=== PATIENT | female | born 1980 | race Caucasian/White ===

== ENCOUNTER 2017-01-18 06:39 | Inpatient (IN) ==
--- NOTE | 2017-01-18 06:57 | History and Physical Update ---
History and Physical Update - History and Physical H&P was reviewed, the patient examined and there: are no changes in the patients condition since last H&P was completed. - Dictation Physical: refer to scanned H&P - Physical Exam Mental Status: alert and oriented Heart: regular rate and rhythm Lung: clear to auscultation Abdomen: within normal limits Vitals: within normal limits History and Physical Changes: 36yo at 39 wks for induction. No complications.
[2017-01-18] MEDS ORDERED: BUTORPHANOL 2 MG/ML VIAL IV PRN (07:34)
[2017-01-18] MEDS ORDERED: ONDANSETRON 4 MG/2 ML VIAL IV PRN (07:34)
[2017-01-18] MEDS ORDERED: MEPERIDINE 50 MG/1 ML VIAL IM PRN (07:34)
[2017-01-18 08:00] LABS: Basophils % 0.3 % (0.0-0.8); Eosinophils % 0.6 % (0.00-10.9); Hematocrit 32.7 VOL% (35.7-47.0); Hemoglobin 11.3 GM/DL (12.0-16.0); Immature Granulocytes % 0.8 %; Immature Granulocytes Absolute 0.05 #; Lymphocytes # 1.9 10*3/uL (1.4-4.0); Lymphocytes % 28.1 % (21.3-54.2); Mean Corpuscular HGB Conc 34.6 GM/DL (32-36); Mean Corpuscular Hemoglobin 29 PG (27-34); Mean Corpuscular Volume 84.5 FL (87-102); Mean Platelet Volume 11.7 FL (9.6-12.0); Monocytes # 0.5 10*3/uL (0.11-0.8); Neutrophils # 4.1 10*3/uL (1.4-7.4); Neutrophils % 62.2 % (38.7-73.9); Platelet Count 219 T/CUMM (130-400); Red Blood Count 3.87 MC/CUMM (3.8-5.5); Red Cell Distribution Width 14.3 % (9.3-17.3); White Blood Count 6.7 T/CUMM (4-12)
[2017-01-18 08:21] LABS: Alanine Aminotransferase 10 U/L (13-56); Albumin 2.4 G/DL (3.4-5.0); Alkaline Phosphatase 103 U/L (45-117); Aspartate Amino Transferase 20 U/L (0-37); Bilirubin,Total < 0.39 MG/DL (0.2-1.0); Blood Urea Nitrogen 7 MG/DL (7-18); Calcium 8.6 MG/DL (8.5-10.1); Glucose 115 MG/DL (74-106); Osmolality,Calculated 273.7 MOS/KG (273-304); Potassium 3.8 MMOL/L (3.5-5.1); Sodium 138 MMOL/L (136-145); Total Protein 6.3 G/DL (6.4-8.3)
[2017-01-18] MEDS ORDERED: WITCH HAZEL PADS 100/JAR TOP PRN (12:30)
[2017-01-18] MEDS: LACTATED RINGERS 1,000 ML IV SCH ×2 (12:41→17:50)
[2017-01-18] MEDS ORDERED: FAMOTIDINE 20 MG/2 ML VIAL IV ONE (12:43)
[2017-01-18] MEDS ORDERED: ePHEDrine 50 MG/ML AMP IV PRN (12:43)
[2017-01-18] MEDS ORDERED: hydrOXYzine HCL 25 MG/1 ML VIAL IM PRN (12:43)
[2017-01-18] MEDS ORDERED: diphenhydrAMINE 50 MG/1 ML VIAL IV PRN ×2 (12:43)
[2017-01-18] MEDS ORDERED: PROMETHAZINE 25 MG/1 ML VIAL IM ONE (12:43)
[2017-01-18] MEDS ORDERED: LACTATED RINGERS 1,000 ML IV ONE (12:43)
[2017-01-18] MEDS ORDERED: CITRIC ACID/SODIUM CITRATE 30 ML UDCUP PO ONE (12:43)
[2017-01-18] MEDS ORDERED: ONDANSETRON 4 MG/2 ML VIAL IV ONE (12:43)
[2017-01-18] MEDS: fentaNYL 2 MCG/ROPIV 0.2% EPID 150 ML EPIDURAL SCH (14:09)
[2017-01-18] MEDS: OXYTOCIN/LR 20 UNIT/1,000 ML BAG IV SCH (14:32)
[2017-01-18 14:36] LABS: Apearance,Urine CLEAR (Clear); Bilirubin,Urine Negative (Negative); Blood, Urine Negative (Negative); Glucose,Urine (UA) Negative (Negative); Ketones,Urine Negative (Negative); Nitrite,Urine Negative (Negative); Protein,Urine Negative; RBC,Urine 1 /HPF (0-4); Urine Color Straw (Yellow); Urine Specific Gravity 1.003 (1.001-1.035); Urine Urobilinogen < 2.0 EU/DL (0.2-1.0); WBC,Urine 1 /HPF (0-6)
[2017-01-19] MEDS ORDERED: METHYLERGONOVINE 0.2 MG/1 ML AMP ONE (05:41)
[2017-01-19] MEDS ORDERED: miSOPROStol 200 MCG TABLET ONE (05:41)
[2017-01-19] MEDS ORDERED: LIDOCAINE 1% 50 ML VIAL ONE (05:41)
[2017-01-19] MEDS ORDERED: HYDROCORTISONE 2.5% RECTAL CREAM 30 GM TUBE TOP PRN (06:18)
[2017-01-19] MEDS ORDERED: LANOLIN 50% CREAM 0.3 OZ TUBE TOP PRN (06:18)
[2017-01-19] MEDS ORDERED: MEASLES/MUMPS/RUBELLA VACCINE 0.5 ML VIAL SUBCUT ONE (06:18)
[2017-01-19] MEDS ORDERED: ACETAMINOPHEN 325 MG TABLET PO PRN (06:18)
[2017-01-19] MEDS ORDERED: oxyCODONE/ACETAMINOPHEN 5-325 MG TABLET PO PRN (06:18)
[2017-01-19] MEDS ORDERED: DIPH/TET/ACEL PERT BOOSTER VACCINE 0.5 ML VIAL IM ONE (06:18)
[2017-01-19] MEDS ORDERED: BENZOCAINE 20%/MENTHOL 0.5% SPRAY 56 GM CAN TOP PRN (06:18)
[2017-01-19] MEDS ORDERED: RHO(D) IMMUNE GLOBULIN 300 MCG SYRINGE IM ONE (06:18)
[2017-01-19] MEDS ORDERED: WITCH HAZEL PADS 100/JAR TOP PRN (06:18)
[2017-01-19] MEDS ORDERED: BISACODYL 10 MG SUPP RECTAL PRN (06:18)
[2017-01-19] MEDS ORDERED: ONDANSETRON 4 MG/2 ML VIAL IV PRN (06:18)
[2017-01-19] MEDS ORDERED: OXYTOCIN/LR 20 UNIT/1,000 ML BAG IV ONE (06:18)
--- NOTE | 2017-01-19 06:24 | Operative Note ---
Date of procedure: 01/19/17 Pre-op diagnosis: 39wk, AMJay Post-op diagnosis: same Procedure: Spontaneous assisted vaginal delivery; 2nd degree midline episiotomy, repaired Patient progressed to complete and pushing with labor epidural. A second degree episiotomy was performed. The infant was delivered without difficulty. Baby was bulb suctioned and placed on mother's abdomen. Delayed cord clamping was allowed. The cord was doubly clamped and cut. Cord blood was collected. The placenta then delivered intact. The second-degree midline episiotomy was repaired with 2-0 and 3-0 chromic sutures with good approximation and hemostasis. . Fundus was noted to be firm. Pt tolerated this well. Estimated blood loss 400 mL. Patient was stable and the infant was stable. Anesthesia: epidural Surgeon / Physician: Brandy Mckeon Estimated blood loss: other (400cc) Specimens: other (placenta to path; cord blood to lab) Condition: stable Disposition: no change Results - Labs CBC & BMP: 01/18/17 07:44 01/18/17 07:43 Discharge Plan - Discharge Medications No Action Vits #90/Iron Fum/FA [ Formula Tablet] 1 tablet PO DAILY - Follow Up or Referral - Forms/Instructions
--- NOTE | 2017-01-19 07:17 | Anesthesia Post-Op ---
Anesthesia Post OP - Post Ansesthetic Evaluation Patient seen in post op: Yes Resp: within normal limits CV: within normal limits Mental: within normal limits Temp: within normal limits [id number]: within normal limits Nausea and Vomiting: within normal limits Pain: within normal limits
[2017-01-19] MEDS: IBUPROFEN 800 MG TABLET PO PRN ×2 (10:00→19:58)
[2017-01-19] MEDS: DOCUSATE SODIUM 100 MG CAPSULE PO SCH ×2 (11:37→19:59)
[2017-01-19] MEDS: oxyCODONE/ACETAMINOPHEN 5-325 MG TABLET PO PRN ×2 (12:10→19:59)
[2017-01-19] MEDS: LACTATED RINGERS 1,000 ML IV SCH (22:29)
[2017-01-19] MEDS: fentaNYL 2 MCG/ROPIV 0.2% EPID 150 ML EPIDURAL SCH (22:30)
[2017-01-19] MEDS: OXYTOCIN/LR 20 UNIT/1,000 ML BAG IV SCH (22:31)
[2017-01-20] MEDS: oxyCODONE/ACETAMINOPHEN 5-325 MG TABLET PO PRN ×3 (05:37→21:47)
[2017-01-20] MEDS: IBUPROFEN 800 MG TABLET PO PRN ×3 (05:37→21:47)
[2017-01-20] MEDS: LACTATED RINGERS 1,000 ML IV SCH ×2 (05:44→21:48)
[2017-01-20 06:41] LABS: Basophils % 0.2 % (0.0-0.8); Eosinophils # 0.1 10*3/uL (0.0-0.87); Eosinophils % 0.8 % (0.00-10.9); Hematocrit 27.3 VOL% (35.7-47.0); Immature Granulocytes % 0.6 %; Immature Granulocytes Absolute 0.07 #; Lymphocytes # 2.2 10*3/uL (1.4-4.0); Lymphocytes % 19.3 % (21.3-54.2); Mean Corpuscular HGB Conc 33.3 GM/DL (32-36); Mean Corpuscular Hemoglobin 29 PG (27-34); Mean Corpuscular Volume 88.1 FL (87-102); Mean Platelet Volume 11.9 FL (9.6-12.0); Monocytes # 0.8 10*3/uL (0.11-0.8); Monocytes % 6.9 % (1.7-12.7); Neutrophils # 8.2 10*3/uL (1.4-7.4); Neutrophils % 72.2 % (38.7-73.9); Platelet Count 184 T/CUMM (130-400); Red Cell Distribution Width 14.7 % (9.3-17.3)
[2017-01-20 07:12] LABS: Hemoglobin 9.1 GM/DL (12.0-16.0); White Blood Count 11.4 T/CUMM (4-12)
[2017-01-20 07:16] LABS: Lymphocytes 22 % (20-55); Segmented Neutrophils 73 % (50-85); Total Cells Counted 100
[2017-01-20 07:17] LABS: Anisocytosis 1+; Macrocytosis 1+; Platelet Estimate Normal
[2017-01-20] MEDS: DOCUSATE SODIUM 100 MG CAPSULE PO SCH ×2 (08:48→21:47)
--- NOTE | 2017-01-20 14:20 | Pathology Report from [facility] ---
[facility] – [place] ACCESSION # : [id number] PATIENT NAME : Jai Lima ORDERING DR : PACO BURROUGHS DO CLINICAL HX: IUP @ 39.3 wks gestation POST-OP DX: Same SPECIMEN INFO: Placenta GROSS DESCRIPTION: The specimen is received fresh labeled JAI LIMA consists of 471.0 gm placenta measuring 17.5 x 16.0 x 2.6 cm. The membranes are dupree and translucent. The umbilical cord measures 44.0 cm, contains three vessels and is eccentrically inserted. The surface is blue -snow and intact. The maternal surface displays intact red-snow cotyledons with no abnormalities noted upon sectioning. Sections submitted: (A) membranes and cord, (B) and maternal surfaces. DIAGNOSIS FOR JAI LIMA: PLACENTA, 39.3 WEEKS GESTATIONAL AGE, VAGINAL DELIVERY: Mature placenta, 471 trimmed weight. Acute chorioamnionitis. Acute subchorionitis. Trivascular umbilical cord, 44 cm in length. COLLECTED DATE: 01/19/2017 [facility] REPORT DATE: 01/20/2017 ELECTRONICALLY SIGNED BY: Terri Rodriguez M.D. 01/20/2017 - 11:47:32 [facility]TDD
[2017-01-20] MEDS: fentaNYL 2 MCG/ROPIV 0.2% EPID 150 ML EPIDURAL SCH (21:48)
[2017-01-20] MEDS: OXYTOCIN/LR 20 UNIT/1,000 ML BAG IV SCH (21:48)
[2017-01-21] MEDS: IBUPROFEN 800 MG TABLET PO PRN (04:46)
[2017-01-21] MEDS: oxyCODONE/ACETAMINOPHEN 5-325 MG TABLET PO PRN (04:46)
[2017-01-21] MEDS: LACTATED RINGERS 1,000 ML IV SCH (04:47)
[2017-01-21] MEDS: fentaNYL 2 MCG/ROPIV 0.2% EPID 150 ML EPIDURAL SCH (04:47)
[2017-01-21 07:39] VITALS: BP 129/66
[2017-01-21] MEDS: DOCUSATE SODIUM 100 MG CAPSULE PO SCH (08:23)
== END 2017-01-21 11:35 | disposition home or self-care (01) | DRG 775 ==
LOC: N.LDOUT 06:39 → N.LD 06:40 → N.OB 01-19 09:24
PROVIDERS: ADMIT Obstetrics & Gynecology; ATTEND Obstetrics & Gynecology

== ENCOUNTER 2021-08-13 08:26 | Inpatient (IN) ==
[2021-08-13] MEDS ORDERED: SODIUM CHLORIDE 0.9% 1,000 ML IV STA ×2 (09:14→10:07)
[2021-08-13] MEDS ORDERED: ONDANSETRON 4 MG/2 ML VIAL IV STA (09:14)
[2021-08-13] MEDS ORDERED: HYDROmorphone 1 MG/1 ML SYRINGE IV STA (10:10)
[2021-08-13 10:26] LABS: Basophils % 0.3 % (0.0-0.8); Eosinophils # 0.1 10*3/uL (0.0-0.87); Eosinophils % 0.6 % (0.00-10.9); Hematocrit 53.2 VOL% (35.7-47.0); Immature Granulocytes % 0.7 %; Immature Granulocytes Absolute 0.06 #; Lymphocytes # 1.5 10*3/uL (1.4-4.0); Lymphocytes % 16.1 % (21.3-54.2); Mean Corpuscular HGB Conc 36.5 GM/DL (32-36); Mean Corpuscular Volume 92.8 FL (87-102); Mean Platelet Volume 11.7 FL (9.6-12.0); Monocytes % 3.5 % (1.7-12.7); NRBC # 0.02 10*3/uL; Neutrophils % 78.8 % (38.7-73.9); Platelet Count 251 T/CUMM (130-400); Red Blood Count 5.73 MC/CUMM (3.8-5.5); Red Cell Distribution Width 14.4 % (9.3-17.3); White Blood Count 9.1 T/CUMM (4-12)
[2021-08-13 10:27] LABS: Hemoglobin 19.4 GM/DL (12.0-16.0)
[2021-08-13 10:28] LABS: Albumin 3.9 G/DL (3.4-5.0); Bilirubin,Total 0.5 MG/DL (0.20-1.00); Calcium 9.4 MG/DL (8.5-10.1); Osmolality,Calculated 280.3 MOS/KG (273-304); Potassium 2.6 MMOL/L (3.5-5.1); Total Protein 7.8 G/DL (6.4-8.2)
[2021-08-13 10:29] LABS: Bacteria,Urine Occasional /HPF (Few); Mucus,Urine Occasional /LPF (Occasional); RBC,Urine 3 /HPF (0-4); Squamous Epithelial Cell,Urine Occasional /HPF (0-10)
[2021-08-13 10:30] LABS: Bilirubin,Urine Negative (Negative); Blood, Urine Moderate mg/dL (Negative); Glucose,Urine (UA) Negative (Negative); Ketones,Urine Trace mg/dL (Negative); Nitrite,Urine Negative (Negative); Protein,Urine 1+ mg/dL (Negative); Urine Appearance Clear (Clear); Urine Color Yellow (Yellow); Urine Urobilinogen 0.2 eU/dL (<2.0)
[2021-08-13 10:31] LABS: Platelet Estimate Normal
[2021-08-13] MEDS ORDERED: THIAMINE INJ 100 MG, FOLIC ACID INJ 1 MG, MAGNESIUM SULF INJ 2 GM, MULTIVITAMIN INJ 10 ... IV ONE (10:35)
[2021-08-13] MEDS ORDERED: POTASSIUM CHLORIDE 20 MEQ TABLET PO STA (10:35)
[2021-08-13 10:46] LABS: Barbiturates Screen,Urine Negative (Negative); Benzodiazepines Screen,Urine Negative (Negative); Cannabinoid Screen,Urine Positive (Negative); Opiate Screen,Urine Negative (Negative); Phencyclidine Screen,Urine Negative (Negative)
[2021-08-13] MEDS ORDERED: hydrALAZINE 20 MG/1 ML VIAL IV PRN (11:09)
[2021-08-13] MEDS ORDERED: ONDANSETRON 4 MG/2 ML VIAL IV PRN (11:09)
[2021-08-13] MEDS ORDERED: DEXTROSE 10% 250 ML BAG IV PRN (11:09)
[2021-08-13] MEDS ORDERED: GLUCAGON 1 MG VIAL IM PRN (11:09)
[2021-08-13] MEDS ORDERED: HYDROmorphone 1 MG/1 ML SYRINGE IV PRN (11:12)
[2021-08-13] MEDS ORDERED: MAGNESIUM SULF RIDER 4 GM/100 ML PREMIX IV PRN (11:34)
[2021-08-13] MEDS ORDERED: MAGNESIUM SULF RIDER 2 GM/50 ML PREMIX IV PRN (11:34)
[2021-08-13] MEDS: ENOXAPARIN 40 MG/0.4 ML SYRINGE SUBCUT SCH (11:38)
[2021-08-13] MEDS: SODIUM CHLORIDE 0.9% 1,000 ML IV SCH ×3 (12:45→23:35)
[2021-08-13] MEDS: POTASSIUM CHLORIDE RIDER 10 MEQ/100 ML PREMIX IV PRN ×4 (13:06→15:50)
[2021-08-13] MEDS: HYDROmorphone 1 MG/1 ML SYRINGE IV PRN ×4 (13:15→23:32)
[2021-08-13] MEDS ORDERED: SODIUM CHLORIDE 0.9% 1,000 ML IV ONE (15:07)
[2021-08-13] MEDS: LORazepam 2 MG/1 ML VIAL IV PRN (15:30)
[2021-08-13 21:37] LABS: Osmolality,Calculated 270.8 MOS/KG (273-304)
[2021-08-13 21:44] LABS: Calcium 6.3 MG/DL (8.5-10.1)
[2021-08-14] MEDS: HYDROmorphone 1 MG/1 ML SYRINGE IV PRN ×5 (02:53→21:21)
[2021-08-14] MEDS: SODIUM CHLORIDE 0.9% 1,000 ML IV SCH ×5 (04:37→21:28)
[2021-08-14 05:43] LABS: Basophils % 0.1 % (0.0-0.8); Eosinophils % 0.2 % (0.00-10.9); Hematocrit 51.7 VOL% (35.7-47.0); Hemoglobin 17.7 GM/DL (12.0-16.0); Immature Granulocytes % 0.4 %; Immature Granulocytes Absolute 0.05 #; Mean Corpuscular HGB Conc 34.2 GM/DL (32-36); Mean Corpuscular Volume 98.1 FL (87-102); Mean Platelet Volume 11.9 FL (9.6-12.0); Monocytes % 4.8 % (1.7-12.7); Neutrophils % 86.5 % (38.7-73.9); Platelet Count 206 T/CUMM (130-400); Red Blood Count 5.27 MC/CUMM (3.8-5.5); Red Cell Distribution Width 14.8 % (9.3-17.3)
[2021-08-14 06:09] LABS: Bilirubin,Total 0.6 MG/DL (0.20-1.00); Calcium 6.3 MG/DL (8.5-10.1); Osmolality,Calculated 266.1 MOS/KG (273-304); Potassium 3.2 MMOL/L (3.5-5.1); Total Protein 6.6 G/DL (6.4-8.2)
[2021-08-14] MEDS ORDERED: SODIUM CHLORIDE 0.9% 1,000 ML IV ONE (08:22)
[2021-08-14] MEDS: POTASSIUM CHLORIDE RIDER 10 MEQ/100 ML PREMIX IV PRN ×4 (08:45→12:50)
[2021-08-14] MEDS: PANTOPRAZOLE 40 MG VIAL IV SCH (09:07)
[2021-08-14] MEDS ORDERED: CALCIUM GLUCONATE RIDER 1,000 MG/50 ML PREMIX IV ONE (11:00)
[2021-08-14] MEDS: ENOXAPARIN 40 MG/0.4 ML SYRINGE SUBCUT SCH (11:19)
[2021-08-14] MEDS: NICOTINE 21 MG/24 HR PATCH TRANSDERM PRN (13:30)
[2021-08-14] MEDS: FAMOTIDINE 20 MG TABLET PO SCH (21:19)
[2021-08-15] MEDS: HYDROmorphone 1 MG/1 ML SYRINGE IV PRN ×6 (01:12→23:37)
[2021-08-15] MEDS: SODIUM CHLORIDE 0.9% 1,000 ML IV SCH ×2 (02:06→09:27)
[2021-08-15 05:28] LABS: Basophils % 0.2 % (0.0-0.8); Eosinophils # 0.1 10*3/uL (0.0-0.87); Eosinophils % 0.4 % (0.00-10.9); Hematocrit 42.4 VOL% (35.7-47.0); Hemoglobin 14.8 GM/DL (12.0-16.0); Immature Granulocytes % 0.5 %; Immature Granulocytes Absolute 0.06 #; Lymphocytes # 1.3 10*3/uL (1.4-4.0); Lymphocytes % 11.7 % (21.3-54.2); Mean Corpuscular HGB Conc 34.9 GM/DL (32-36); Mean Corpuscular Volume 96.1 FL (87-102); Monocytes % 4.9 % (1.7-12.7); Neutrophils % 82.3 % (38.7-73.9); Platelet Count 141 T/CUMM (130-400); Red Blood Count 4.41 MC/CUMM (3.8-5.5); Red Cell Distribution Width 14.3 % (9.3-17.3); White Blood Count 11.2 T/CUMM (4-12)
[2021-08-15 05:47] LABS: Albumin 2.3 G/DL (3.4-5.0); Bilirubin,Total 0.8 MG/DL (0.20-1.00); Calcium 6.1 MG/DL (8.5-10.1); Osmolality,Calculated 270.7 MOS/KG (273-304); Potassium 2.6 MMOL/L (3.5-5.1); Total Protein 5.7 G/DL (6.4-8.2)
[2021-08-15] MEDS: POTASSIUM CHLORIDE RIDER 10 MEQ/100 ML PREMIX IV PRN ×4 (06:07→10:30)
[2021-08-15] MEDS: PANTOPRAZOLE 40 MG VIAL IV SCH ×2 (07:49→09:29)
[2021-08-15] MEDS: NICOTINE 21 MG/24 HR PATCH TRANSDERM PRN (09:25)
[2021-08-15] MEDS ORDERED: POTASSIUM CHLORIDE 20 MEQ TABLET PO PRN (12:01)
[2021-08-15] MEDS: ENOXAPARIN 40 MG/0.4 ML SYRINGE SUBCUT SCH (12:29)
[2021-08-15] MEDS: SODIUM CHLOR 0.9% KCL 40 MEQ 40 MEQ/1,000 ML BAG IV SCH (13:14)
[2021-08-15] MEDS ORDERED: POTASSIUM BICARB EFFERVESCENT 20 MEQ TAB.EFF PO PRN (14:30)
[2021-08-15] MEDS ORDERED: POTASSIUM PHOSPHATE IV ONE (15:00)
[2021-08-15] MEDS ORDERED: MAGNESIUM SULF IV ONE (15:00)
[2021-08-15] MEDS ORDERED: [UNRECOGNIZED DRUG - OTHER] IV ONE (15:00)
[2021-08-15] MEDS ORDERED: POTASSIUM CHLORIDE IV ONE (15:00)
[2021-08-15] MEDS: FAMOTIDINE 20 MG TABLET PO SCH (22:19)
[2021-08-16] MEDS: SODIUM CHLOR 0.9% KCL 40 MEQ 40 MEQ/1,000 ML BAG IV SCH ×4 (05:38→16:26)
[2021-08-16] MEDS: HYDROmorphone 1 MG/1 ML SYRINGE IV PRN (05:40)
[2021-08-16 07:11] LABS: Albumin 2.1 G/DL (3.4-5.0); Bilirubin,Total 0.8 MG/DL (0.20-1.00); Calcium 6.9 MG/DL (8.5-10.1); Potassium 3.8 MMOL/L (3.5-5.1); Total Protein 6.1 G/DL (6.4-8.2)
[2021-08-16] MEDS ORDERED: POTASSIUM PHOSPHATE 30 MMOL in SODIUM CHLORIDE 0.9% 250 ML IV ONE (08:15)
[2021-08-16] MEDS: LORazepam 2 MG/1 ML VIAL IV PRN (08:35)
[2021-08-16] MEDS ORDERED: CLORAZEPATE 3.75 MG TABLET PO SCH (09:00)
[2021-08-16] MEDS: POTASSIUM PHOS/SOD PHOS POWDER 250 MG PACK PO SCH ×3 (10:22→18:03)
[2021-08-16] MEDS: PANTOPRAZOLE 40 MG VIAL IV SCH (10:22)
[2021-08-16] MEDS: ENOXAPARIN 40 MG/0.4 ML SYRINGE SUBCUT SCH (11:53)
[2021-08-16 16:28] VITALS: BP 147/80
== END 2021-08-16 18:12 | disposition home or self-care (01) | DRG 439 ==
LOC: EDUNIT# → N.ED 08:26 → N.EDINP 11:09 → SUATTDRO 11:09 → N.5E 17:30
PROVIDERS: ADMIT Internal Medicine; ATTEND Internal Medicine